=== PATIENT | female | born 1990 | race Caucasian/White ===

== ENCOUNTER 2016-09-14 23:54 | Emergency (ER) | payer SELFPAY ==
[~2016-09-14] VITALS: Wt 74.0 kg
== END 2016-09-15 01:03 | disposition left against medical advice (07) ==
LOC: E/R 23:54
DX: Z53.21 Procedure and treatment not carried out due to patient leaving prior to being seen by health care provider (principal)

== ENCOUNTER → 2018-05-18 | Outpatient (CLI) | END | disposition home or self-care (01) ==